=== PATIENT | male | born 1975 | race Caucasian/White ===

== ENCOUNTER 2023-02-22 14:56 | Outpatient (REF) | payer MEDICAID, SELFPAY ==
--- NOTE | ~2023-02-22 | US_ITS ---
EXAMINATION: US VENOUS ULTRASOUND WITH DOPPLER LOWER EXTREMITY, RIGHT CLINICAL INFORMATION: Right lower extremity edema. COMPARISON: None available. TECHNIQUE: Ultrasound of the deep veins is performed from the hip to the calf with compression sonography and color and pulse Doppler assessment. Spectral analysis with color-flow imaging is performed. FINDINGS: There is normal venous compression and respiratory variation and augmented flow. The visualized common femoral vein, superficial femoral vein, profunda femoral vein, popliteal vein, and the trifurcation region shows no evidence of deep venous thrombosis. Enlarged right inguinal reniform lymph node measures up to 3.5 cm in long axis. No right popliteal cyst. Mild to moderate subcutaneous edema in the right calf. US/US venous duplex LE RT IMPRESSION: 1. No evidence for deep venous thrombosis in the visualized veins of the right lower extremity. 2. Mild to moderate subcutaneous edema in the right calf. 3. Enlarged right inguinal lymph node is nonspecific, but may be reactive. Correlate with physical exam. If these findings persist or enlarge, short-term repeat targeted soft tissue ultrasound can be performed as clinically indicated to assess for change.
== END 2023-02-22 14:57 | disposition home or self-care (01) ==
LOC: HO.US 14:56
PROVIDERS: PCP Hospitalist; Visit Provider Hospitalist
DX: M79.661 Pain in right lower leg (principal); R60.9 Edema, unspecified
CPT/HCPCS: 93971